=== PATIENT | male | born 1975 | race Caucasian/White ===

== ENCOUNTER 2022-01-04 14:57 | Inpatient (IN) | payer MEDICAID ==
[~2022-01-04] VITALS: Ht 160 cm; Wt 53.7 kg
[2022-01-04] MEDS ORDERED: ONDANSETRON 4 MG/2 ML VIAL IV ONE (15:15)
[2022-01-04] MEDS ORDERED: IV NORMAL SALINE 1000 ML BAG IV ONE ×2 (15:15→16:45)
[2022-01-04] MEDS ORDERED: ONDANSETRON 4 MG/2 ML VIAL ONE (15:50)
--- NOTE | 2022-01-04 15:58 | NUR ---
Social work consult was requested for a patient in the emergency room for homeless and substance abuse resources. Patient is 46-year-old male. Patient is Bengali speaking and SW had nurse, calos Liu. Patient appears alert and oriented X4. Patient presents with anxious mood and congruent affect. Patient appeared in pain during assessment. Patient states he does not have a primary contact. Patient states he has been homeless for 5 months in [place]. SW provided the patient resources and gave him the information for [facility] [address] [place] [address] ([phone]) and [facility] [address] [address] ([phone]). SW gave resources for [facility] [address] [place] [id number]. Resources were placed in the chart. Homeless waiver was signed and given to the patient and a copy was placed in the chart. Patient states that he is unemployed. Patient states that he has a history of alcohol abuse. There is no toxicology report. SW provided the patient resources and referrals for substance use from [facility] [address] [facility] [address] ([phone]), [facility] [address] [facility] [address] ([phone]), and [facility] [address] [place] [address] ([phone]). Patient appeared appreciative of resources. Resources were placed in the chart. Patient denies a history of psychiatric diagnosis. Patient denies suicidal or homicidal ideation. Patient states he will follow-up with making his own arrangements for a living arrangement using the resources provided.
[2022-01-04 16:21] LABS: HEMATOCRIT 35.8 % (36.7-47.1); MEAN CORPUSCULAR HEMOGLOBIN 29.6 uug (23.8-33.4); MEAN CORPUSCULAR VOLUME 90.7 fL (73.0-96.2); PLATELET COUNT (AUTO) 246 K/uL (152-348)
[2022-01-04 16:30] LABS: BILIRUBIN,DIRECT 0.1 mg/dL (0.0-0.2); BILIRUBIN,TOTAL 0.6 mg/dL (0.2-1.0); CREATININE 2.7 mg/dL (0.6-1.3); TOTAL PROTEIN, SERUM 9.7 g/dL (6.4-8.2)
[2022-01-04 16:34] LABS: POTASSIUM 2.6 mmol/L (3.5-5.1)
[2022-01-04] MEDS ORDERED: MAGNESIUM SULFATE 2 GM in IV DEXTROSE 5% 100 ML IV ONE (16:45)
[2022-01-04] MEDS ORDERED: CHLORDIAZEPOXIDE HCL 25 MG CAPSULE PO ONE (17:00)
--- NOTE | 2022-01-04 17:30 | NUR ---
PT RESTING COMFORTABLY IN BED, NO LONGER NAUSEOUS. PT TOLERATED ICE CHIPS.
[2022-01-04] MEDS ORDERED: MAGNESIUM SULFATE/D5W 200 ML ONE (17:35)
[2022-01-04] MEDS: MAGNESIUM SULFATE/D5W 100 ML IV SCH ×2 (17:43→18:00)
[2022-01-04] MEDS ORDERED: CHLORDIAZEPOXIDE HCL 25 MG CAPSULE ONE (17:43)
[2022-01-04 18:23] LABS: ACETAMINOPHEN < 2.0 ug/mL (10-30)
[2022-01-04] MEDS: POTASSIUM CHLORIDE 50 ML IV SCH ×4 (19:50→23:00)
--- NOTE | 2022-01-04 19:50 | NUR ---
HAND OFF REPORT GIVEN TO LONI GONSALEZ. PT IN STABLE CONDITION.
[2022-01-04] MEDS ORDERED: LORAZEPAM 2 MG/1 ML VIAL IV PRN (20:15)
[2022-01-04] MEDS ORDERED: ONDANSETRON 4 MG/2 ML VIAL IV PRN (20:15)
[2022-01-04] MEDS ORDERED: MORPHINE SULFATE 2 MG/1 ML DISP.SYRIN IV PRN (20:15)
[2022-01-04] MEDS ORDERED: ACETAMINOPHEN 650 MG SUPP.RECT RC PRN (20:15)
--- NOTE | 2022-01-04 21:48 | NUR ---
report given to cyrus witt pt to go to room 311.
[2022-01-04 22:45] VITALS: BP 133/78
--- NOTE | 2022-01-04 22:45 | NUR ---
Admitted a 46 years old male with Dx of RF and Cholecystitis. Patient AAOx4, Kazakh speaking only. In no apparent distress. NSR on tele with HR of 72/min. IV site on right hand intact and patent. Routine admission care done. Plan of care initiated. Safety measure initiated and call light within reached.
--- NOTE | 2022-01-04 23:06 | NUR ---
pt transported to room 311 via [facility] with all belongings. [facility] at bedside to receive the pt. Harsha rose in room to receive the pt.
[2022-01-04] MEDS ORDERED: IV D5W-0.45% NS +20 KCL 1,000 ML IV ONE (23:21)
[2022-01-04] MEDS: POTASSIUM CHLORIDE 20 MEQ in IV D5 1/2 NS 1000 ML 1,000 ML IV PRN (23:48)
[2022-01-05] MEDS ORDERED: PIPERACILLIN/TAZO 2.25 G in IV DEXTROSE 5% 50 ML IV SCH ×2
[2022-01-05] MEDS ORDERED: PIPERACILLIN/TAZOBACTAM/D5W 50 ML ONE ×2 (00:16→00:17)
[2022-01-05] MEDS: PIPERACILLIN/TAZO 2.25 G in IV DEXTROSE 5% 50 ML IV SCH ×2 (00:22→05:09)
[2022-01-05 04:00] VITALS: BP 133/84
--- NOTE | 2022-01-05 05:52 | NUR ---
Slept well during the night. No complain of pain or SOB. NSR on tele with HR of 76/min. IV site on right hand intact and patent. IVF infusing. No adverse reaction noted from IV antibiotic. Needs attended to and met. Safety measure maintained and call light within reached.
[2022-01-05 06:23] LABS: HEMATOCRIT 31.8 % (36.7-47.1); MEAN CORPUSCULAR HEMOGLOBIN 30.2 uug (23.8-33.4); MEAN CORPUSCULAR VOLUME 91.5 fL (73.0-96.2); PLATELET COUNT (AUTO) 186 K/uL (152-348)
[2022-01-05 06:43] LABS: *BLOOD, URINE NEGATIVE (NEGATIVE); *CLARITY,URINE CLEAR (CLEAR); *COLOR,URINE YELLOW (YELLOW); *KETONES,URINE NEGATIVE (NEGATIVE); *UROBILINOGEN,URINE 0.2 E.U./dl (NORMAL); LEUKOCYTE ESTERASE ,URINE NEGATIVE (NEGATIVE); NITRITE, URINE NEGATIVE (NEGATIVE); PH,URINE 5.5 (5.0-8.0); UGLUCOSE NEGATIVE (NEGATIVE)
[2022-01-05 07:13] LABS: *BILIRUBIN,URIN 1+ (NEGATIVE)
[2022-01-05 07:14] LABS: BACTERIA,URINE FEW /HPF (NONE SEEN); SQUAMOUS EPITHELIAL CELL,UR FEW /HPF (NONE SEEN)
[2022-01-05 07:26] LABS: ALANINE AMINOTRANSFERASE 71 U/L (16-63); ALKALINE PHOSPHATASE 67 U/L (50-136); ASPARTATE AMINOTRANSFERASE 92 U/L (15-37); BILIRUBIN,TOTAL 1.2 mg/dL (0.2-1.0); CARBON DIOXIDE 29 mmol/L (21-32); CHLORIDE 99 mmol/L (98-107); CHOLESTEROL 206 mg/dL (<200); CREATININE 1.6 mg/dL (0.6-1.3); GLUCOSE 107 mg/dL (74-106); HDL CHOLESTEROL 100 mg/dL (40-60); PHOSPHOROUS 3.9 mg/dL (2.5-4.9); POTASSIUM 3.1 mmol/L (3.5-5.1); TRIGLYCERIDES 42 MG/DL (30-150); UREA NITROGEN, BLOOD 22 mg/dL (7-18)
[2022-01-05 07:39] LABS: MAGNESIUM 2.7 mg/dL (1.8-2.4)
--- NOTE | 2022-01-05 08:00 | NUR ---
AWAKE ALERT AND ORIENTED X3, ENGLISH SPEAKING, DENIES NAUSEA AND VOMITING
[2022-01-05] MEDS: PANTOPRAZOLE SODIUM 40 MG VIAL IV SCH (08:45)
[2022-01-05] MEDS ORDERED: POTASSIUM CHLORIDE 20 MEQ TAB.PRT.SR PO ONE (09:30)
[2022-01-05 11:34] VITALS: BP 142/76
--- NOTE | 2022-01-05 13:00 | NUR ---
SEEN BY DR LEIJA WITH ORDER TO START ON REGULAR DIET TOLERATED. PATIENT NOTED WITH LARGE BOWEL MOVEMENT, NO NAUSEA AND VOMITING
[2022-01-05] MEDS: POTASSIUM CHLORIDE 20 MEQ in IV D5 1/2 NS 1000 ML 1,000 ML IV PRN (13:06)
[2022-01-05] MEDS: PIPERACILLIN SODIUM/TAZOBACTAM 3.375 G in IV DEXTROSE 5% 100 ML IV SCH ×2 (13:06→21:41)
[2022-01-05 16:00] VITALS: BP 129/89
--- NOTE | 2022-01-05 18:43 | NUR ---
STARTED ON REGULAR DIET PATIENT TOLERATED WELL, DENIES PAIN NAUSEA AND VOMITING.
--- NOTE | 2022-01-05 19:40 | NUR ---
Patient awake Speak jamaican but understand German, no sob no chest pain, no complain of pain, assisted with toileting cont to monitor.
[2022-01-05 20:00] VITALS: BP 112/73
[2022-01-06 04:00] VITALS: BP 105/74
[2022-01-06] MEDS: PIPERACILLIN SODIUM/TAZOBACTAM 3.375 G in IV DEXTROSE 5% 100 ML IV SCH (05:05)
[2022-01-06 06:47] LABS: HEMATOCRIT 30.6 % (36.7-47.1); MEAN CORPUSCULAR HEMOGLOBIN 30.5 uug (23.8-33.4); MEAN CORPUSCULAR VOLUME 92.4 fL (73.0-96.2); PLATELET COUNT (AUTO) 197 K/uL (152-348)
[2022-01-06 07:06] LABS: CREATININE 1.1 mg/dL (0.6-1.3); PHOSPHOROUS 2.5 mg/dL (2.5-4.9); POTASSIUM 3.6 mmol/L (3.5-5.1)
[2022-01-06] MEDS: PANTOPRAZOLE SODIUM 40 MG VIAL IV SCH (09:32)
[2022-01-06] MEDS ORDERED: MULT-594 PO (10:57)
[2022-01-06] MEDS ORDERED: METR500T PO (11:01)
[2022-01-06] MEDS ORDERED: ACET-2154 PO (11:01)
[2022-01-06] MEDS ORDERED: LEVO500T90 PO (11:01)
--- NOTE | 2022-01-06 11:01 | NUR ---
SW provided patient with TAP card for discharge. Patient is Pashto speaking and SW used RN to translate. Patient requested directions to [facility] using the bus. SW provided the patient with directions to using the bus to [facility]. in Pashto.
[2022-01-06] MEDS ORDERED: FAMO-132 PO (11:02)
[2022-01-06 11:47] VITALS: BP 119/75
[2022-01-06] MEDS ORDERED: ENSURE ENLIVE (VAN) 240 ML LIQUID PO SCH (13:00)
[2022-01-06] MEDS ORDERED: PROTEIN SUPPLEMENT (PROSTAT) 30 ML LIQUID PO SCH (13:00)
--- NOTE | 2022-01-06 13:44 | NUR ---
Pt is being discharged. Pt is homeless, resources provided by social services. All personal belongings at hand. Provided pt with snacks and beverages for the road. Tap card provided for transportation. Discharge education and prescription education provided. IV and ID bands removed. No signs of acute distress.
[2022-01-07] MEDS ORDERED: PANTOPRAZOLE SODIUM 40 MG TABLET.DR PO SCH (07:00)
== END 2022-01-06 14:00 | disposition home or self-care (01) | DRG 241 ==
LOC: ER 14:57 → TELE3 22:01 → MEDSURG3 01-05 09:27
PROVIDERS: ADMIT Internal Medicine; ATTEND Internal Medicine
DX: K29.20 Alcoholic gastritis without bleeding (principal); N17.0 Acute kidney failure with tubular necrosis; K81.9 Cholecystitis, unspecified; K76.0 Fatty (change of) liver, not elsewhere classified; E78.5 Hyperlipidemia, unspecified; E86.0 Dehydration; Z20.822 Contact with and (suspected) exposure to COVID-19; E87.6 Hypokalemia; Z59.00 Homelessness unspecified; F15.10 Other stimulant abuse, uncomplicated; D64.9 Anemia, unspecified; F10.10 Alcohol abuse, uncomplicated; Y90.6 Blood alcohol level of 120-199 mg/100 ml
CPT/HCPCS: 36415; 71045; 76700; 83605; 83690; 83735; 84100; 84484; 85025; 87040; A4663; C9113; G0378; G0480; J2060; J2405; J2543; J3475; J3480